=== PATIENT | male | born 1975 | race Caucasian/White ===

== ENCOUNTER → 2019-02-07 06:50 | Outpatient (CLI) | payer OTHER, SELFPAY ==
[2019-02-07 07:45] LABS: Hemoglobin 14.9 g/dL (13.5-17.5); Mean Corpuscular Hemoglobin 30.7 PG (26-34); Mean Corpuscular Volume 90.5 fL (80-100); Platelet Count 222 X10^3/uL (150-400); Red Blood Cell Count 4.86 X10^6/uL (4.5-5.9); Red Cell Distribution Width 12.9 % (11.6-14.8); White Blood Cell Count 5.3 X10^3/uL (4.5-11.0)
[2019-02-07 08:13] LABS: Alanine Aminotransferase 33 IU/L (21-72); Albumin 4.2 g/dL (3.5-5.0); Albumin Globulin Ratio 1.3 (1.0-2.8); Alkaline Phosphatase 63 U/L (38-126); Aspartate Aminotransferase 31 IU/L (17-59); Bilirubin Total 0.4 mg/dL (0.2-1.3); Blood Urea Nitrogen 18 mg/dL (9-20); Calcium 9.2 mg/dL (8.4-10.2); Carbon Dioxide 30 mmol/L (22-32); Chloride 103 mmol/L (98-107); Cholesterol 220 mg/dL (140-199); Estimated Glomerular Filt Rate > 60.0 mL/min (>60); Globulin 3.2 g/dL (1.7-4.1); Glucose 115 mg/dL (70-100); HDL Cholesterol 26 mg/dL (40-60); HEMOLYSIS 20 (0-50); LDL Cholesterol Calculated 126 mg/dL (<100); Potassium 4.4 mmol/L (3.4-5.1); Sodium 140 mmol/L (137-145); Total Protein 7.4 g/dL (6.3-8.2); Triglycerides 341 mg/dL (35-150)
[2019-02-07 08:57] LABS: Thyroid Stimulating Hormone 1.92 uIU/mL (0.47-4.68)
== END ==
PROVIDERS: PCP Nurse Practitioner Family; Visit Provider Nurse Practitioner Family
DX: E03.9 Hypothyroidism, unspecified (principal); Z13.6 Encounter for screening for cardiovascular disorders
CPT/HCPCS: 36415; 80053; 80061; 84443; 85027

== ENCOUNTER → 2019-07-17 06:41 | Outpatient (CLI) | payer OTHER, SELFPAY ==
[2019-07-17 08:12] LABS: Cholesterol 233 mg/dL (140-199); HDL Cholesterol 25 mg/dL (40-60); LDL Cholesterol Calculated 157 mg/dL (<100); Triglycerides 256 mg/dL (35-150)
[2019-07-17 08:19] LABS: Hemoglobin A1C% w Est Avg Glu 5.2 % (4.0-6.0)
[2019-07-17 08:42] LABS: Thyroid Stimulating Hormone 2.16 uIU/mL (0.47-4.68)
== END ==
PROVIDERS: PCP Nurse Practitioner Family; Visit Provider Nurse Practitioner Family
DX: R73.01 Impaired fasting glucose (principal); E78.2 Mixed hyperlipidemia; E03.9 Hypothyroidism, unspecified
CPT/HCPCS: 36415; 80061; 83036; 84443

== ENCOUNTER → 2020-04-27 13:10 | Outpatient (CLI) | payer OTHER, SELFPAY ==
[2020-04-29 07:27] LABS: COVID19 Sendout Not Detected (Not Detect)
== END ==
PROVIDERS: PCP Nurse Practitioner Family; Visit Provider Physician Assistant
DX: R11.0 Nausea (principal); R19.7 Diarrhea, unspecified; R51.9 Headache, unspecified
CPT/HCPCS: 87635

== ENCOUNTER → 2020-09-23 09:13 | Outpatient (CLI) | payer OTHER, SELFPAY ==
[2020-09-23 10:45] LABS: COVID19 -Nasal RAPID Negative (Negative)
== END ==
PROVIDERS: PCP Nurse Practitioner Family; Visit Provider Specialist
DX: Z20.822 Contact with and (suspected) exposure to COVID-19 (principal)
CPT/HCPCS: 87635; C9803

== ENCOUNTER 2020-09-24 07:19 | Day surgery (SDC) | payer OTHER, SELFPAY ==
[2020-09-24] VITALS (10 sets, daily range): BP systolic 107–144; BP diastolic 58–82; PULSE 61–76; RESP 14–16; TEMP 36.2–37.2; O2SAT 94–98; BMI 35.2
--- NOTE | 2020-09-24 | PATH_ITS ---
[facility] Accession Number: [id number] . 01 Material submitted: . PART A: colon - POLYPS AT 25CM PART B: colon - POLYP AT 5CM . 02 Diagnosis: A. Colon Polyps at 25 cm, Biopsies: Fragments of colonic mucosa with focal mucosal hyperplasia. Negative for dysplasia or malignancy. . B. Colon Polyp at 5 cm, Biopsy: Tubular adenoma x1. Hyperplastic polyp x1. MRV 09/29/2020 1306 Local . 02 Electronically signed: . Ramon Rodas MD, PhD, Pathologist NPI- [id number] . 01 Gross description: . A. The specimen is received in formalin, labeled polyp at 25 cm and consists of three tate-pink fragments of soft tissue measuring 1.0 x 1.0 x 0.3 cm in aggregate. The specimen is entirely submitted in cassette A1. B. The specimen is received in formalin, labeled polyp at 5 cm and consists of two tate fragments of soft tissue measuring 0.8 x 0.7 x 0.3 cm in aggregate. The specimen is entirely submitted in cassette B1. ([id number]) /MRV 09/28/2020 1606 Local . 02 Pathologist provided ICD-10: D12.6, K63.5 . 02 CPT . 441994, [id number] Performed at: 01 [facility] [address], [place], [place] [id number] MD Naveen Newton MD Phone: [phone] Performed at: 02 [facility] [address] [place], [place] [id number] MD Lissa Galindo MD Phone: [phone]
[2020-09-24] MEDS: LACTATED RINGERS 1,000 ML 200 ML IV (08:05)
--- NOTE | 2020-09-24 08:34 | PM.HP.1 ---
History of Present Illness History of Present Illness Date Patient Seen: 09/24/20 Time Patient Seen: 08:34 Chief complaint: SCREENING COLONOSCOPY Narrative: Patient is a gentleman whose father had colon cancer in his 60s. He is here for his 1st colonoscopy. 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) Anxiety (1999) Chicken pox (~1979) Chronic low back pain Depression (1999) Essential hypertension (07/2020) Family history of colon cancer in father Measles (~1975) Migraine Mixed hyperlipidemia (01/2019) Surgical History Anesthesia Ear infection (~1993) History of cochlear implant History of ear surgery (~2017) History of knee surgery (~2016) History of myringotomy Family & Social History Family History Father Cancer Diabetes mellitus History of heart disease Hypertension Hyperlipidemia Grandfather Lung cancer History of heart disease Hyperlipidemia Hypertension Grandmother Congestive heart failure Cancer Grandfather Cancer Grandmother Cancer Hypertension Social History: household members family Tobacco & Substance use: Smoking Status Former smoker alcohol intake never Substance Use Type does not use Meds Home Medications and Allergies Home Medications Medication Instructions Recorded Confirmed Type multivitamin 1 tab PO DAILY 01/30/19 09/24/20 History verapamil 80 mg tablet 80 mg PO TID 06/04/20 09/24/20 History escitalopram oxalate 20 mg tablet 20 mg PO DAILY #90 tab 07/09/20 09/24/20 Rx levothyroxine 75 mcg tablet 75 mcg PO DAILY #90 tab 07/09/20 09/24/20 Rx lisinopril 10 mg tablet 10 mg PO DAILY #90 tab 08/17/20 09/24/20 Rx buspirone 5 mg tablet 5 mg PO BID #180 tab 09/23/20 09/24/20 Rx Allergies Allergy/AdvReac Type Severity Reaction Status Date / Time No Known Drug Allergies Allergy Verified 09/24/20 07:43 Review of Systems Review of Systems Narrative: Hearing improved with implant ROS: Yes All systems reviewed with the patient and are negative except as otherwise documented Exam Vital Signs (past 8 hours): - 09/24/20 07:57 Temperature 97.2 F L Pulse Rate 71 Respiratory Rate 16 Blood Pressure 144/82 H Pulse Oximetry 98 Oxygen Delivery Method Room Air Narrative Exam Narrative: Pleasant cooperative patient no apparent distress. Lungs are clear to auscultation. No rales or rhonchi. Heart regular rate and rhythm no murmur gallop. Abdomen is soft nontender without mass. No obvious hernias. Patient is alert and oriented x3. Assessment & Plan Assessment & Plan narrative: The patient for a screening colonoscopy. I have discussed the procedure with them. Risks of bleeding, perforation which would necessitate major operation, failure to find remove all lesions, the potential tattoo were all discussed. All questions were answered. They wished to proceed.
--- NOTE | 2020-09-24 08:37 | PM.PREOP ---
Pre-operative Note COVID-19 COVID-19 status: Negative Result date/Date tested (Pos, Neg/Pending): 09/23/20 Interval Note History & Physical reviewed/Exam performed by Physician: Yes Changes to H&P: No ASA Class (for procedural sedation): II
[2020-09-24] MEDS: MIDAZOLAM 5 MG/5 ML VIAL IV (08:53)
[2020-09-24] MEDS: fentaNYL 250 MCG/5 ML INJ IV (08:53)
--- NOTE | 2020-09-24 09:10 | PM.OP.ENDO ---
Operative Date/Time/Diagnoses Date of procedure: 09/24/20 Time of procedure: 09:10 Pre-op diagnosis: Screening exam. Patient has a father with colon cancer in his 60s. Post-op diagnosis: same (Small Polyps in the distal colon. Sigmoid diverticulosis.) Procedure & Clinicians Study performed: Colonoscopy with cold biopsy Same procedure as scheduled: Yes Indications: Screening in a patient at increased risk Surgeon: Albert Wu Procedure Notes SCOAP/Timeout: Performed Procedure in detail: The patient was placed in the left lateral decubitus position and underwent IV sedation directed by the surgeon consisting of fentanyl and Versed. Digital exam was unremarkable. Prostate is flat.. The scope was inserted and advanced through the rectum into the sigmoid, descending, transverse, and ascending colon. Patient was noted to have sigmoid diverticulosis. There was a small polyp noted at. The cecum was reached identified by the ileocecal valve and the appendiceal opening. The scope was gradually brought out. Additional Polyps were found at near the 25 cm lesion in and also 2 small polyps noted at about 5 cm from the anal verge. These were all removed with biopsy forceps.. The scope ultimately was retroflexed in the rectum. The appearance was normal. The scope was removed and the patient tolerated the procedure well. Very good prep Scope withdrawal time: 8 minutes(10 total) Sedation minutes: 27 Findings: diverticulosis and polyp Specimen(s): other (Polyps) Complications: none Post-procedure Recommendations: Colonscopy in 5 years Follow up: as needed Disposition: PACU
== END 2020-09-24 10:15 | disposition home or self-care (01) ==
PROVIDERS: PCP Nurse Practitioner Family; Referring Provider Nurse Practitioner Family; Visit Provider Specialist
PROC: 0DJD8ZZ Inspection of Lower Intestinal Tract, Via Natural or Artificial Opening Endoscopic (ICD-10-PCS; CPT 45378; principal; 2020-09-24 08:30)
DX: Z12.11 Encounter for screening for malignant neoplasm of colon (principal); Z80.0 Family history of malignant neoplasm of digestive organs; I10 Essential (primary) hypertension; E78.2 Mixed hyperlipidemia; K57.30 Diverticulosis of large intestine without perforation or abscess without bleeding; D12.6 Benign neoplasm of colon, unspecified
CPT/HCPCS: 45380; 99152; J2250; J3010

== ENCOUNTER → 2021-01-04 07:10 | Outpatient (CLI) | payer OTHER, SELFPAY ==
[2021-01-04 08:31] LABS: Alanine Aminotransferase 98 IU/L (<50); Albumin 4.1 g/dL (3.5-5.0); Albumin Globulin Ratio 1.3 (1.0-2.8); Alkaline Phosphatase 78 U/L (38-126); Aspartate Aminotransferase 103 IU/L (17-59); BUN Creatinine Ratio 13.5 (6-22); Bilirubin Total 0.4 mg/dL (0.2-1.3); Blood Urea Nitrogen 12 mg/dL (9-20); Calcium 9.2 mg/dL (8.4-10.2); Carbon Dioxide 28 mmol/L (22-32); Chloride 105 mmol/L (98-107); Cholesterol 141 mg/dL (140-199); Estimated Glomerular Filt Rate > 60.0 mL/min (>60); Globulin 3.1 g/dL (1.7-4.1); Glucose 128 mg/dL (70-100); HDL Cholesterol 31 mg/dL (40-60); HEMOLYSIS 27 (0-50); LDL Cholesterol Calculated 63 mg/dL (<100); Potassium 4.9 mmol/L (3.4-5.1); Sodium 140 mmol/L (137-145); Total Protein 7.2 g/dL (6.3-8.2); Triglycerides 234 mg/dL (35-150)
== END ==
PROVIDERS: PCP Nurse Practitioner Family; Referring Provider Nurse Practitioner Family; Visit Provider Nurse Practitioner Family
DX: Z00.00 Encounter for general adult medical examination without abnormal findings (principal); E03.9 Hypothyroidism, unspecified; Z13.6 Encounter for screening for cardiovascular disorders
CPT/HCPCS: 36415; 80053; 80061; 84443

== ENCOUNTER → 2021-01-20 08:46 | Outpatient (CLI) | payer OTHER, SELFPAY ==
--- NOTE | 2021-01-20 08:46 | DI.US.S_ITS ---
PROCEDURE: US ABDOMEN COMPLETE INDICATIONS: ELEVATED LIVER ENZYMES TECHNIQUE: Real-time scanning was performed of the abdominal and retroperitoneal organs, with image documentation. COMPARISON: None. FINDINGS: Liver: Liver is diffusely increased in echogenicity. No focal hepatic abnormalities identified. Normal hepatic size. Gallbladder: Several gallbladder polyps, largest measuring 6.1 mm; otherwise normal gallbladder. Biliary ducts: Intrahepatic bile ducts are non-dilated. Extrahepatic bile duct caliber measures 6.0 mm. Normal is 6-7 mm or less in diameter, or 10 mm or less post-cholecystectomy. Pancreas: Visualized portions of the pancreas are sonographically normal. Spleen: Spleen is normal in size and homogeneous in echotexture. Kidneys: Kidneys are normal in size and echotexture. Right kidney measures 11.6 cm long; left kidney measures 13.0 cm long. No hydronephrosis or nephrolithiasis. No solid masses. Aorta: Visualized aorta is normal in caliber at less than 3 cm. Iliacs: Proximal common iliac arteries are normal in caliber at less than 2.5 cm. IVC: Intrahepatic inferior vena cava is patent. Miscellaneous: No free abdominal fluid. IMPRESSION: 1. Increased hepatic echogenicity noted possibly related to hepatic steatosis but other sources of hepatocellular disease cannot be excluded. Recommend clinical correlation. 2. Multiple gallbladder polyps, largest measuring 6.1 mm. Yearly follow-up ultrasound recommended. Dictated by: Juan CHAVES Interpreted: Austin Babin MD on 01/20/2021 at 11:17 Transcribed by: QUINTIN on 01/20/2021 at 11:18 Approved by: Austin Babin M.D. on 01/20/2021 at 14:46
== END ==
PROVIDERS: PCP Nurse Practitioner Family; Referring Provider Nurse Practitioner Family; Visit Provider Nurse Practitioner Family
DX: R74.8 Abnormal levels of other serum enzymes (principal); K82.4 Cholesterolosis of gallbladder
CPT/HCPCS: 76700

== ENCOUNTER → 2021-02-08 15:33 | Outpatient (CLI) | payer OTHER, SELFPAY ==
[2021-02-08 16:18] LABS: Hemoglobin A1C% w Est Avg Glu 5.8 % (4.0-6.0)
[2021-02-08 16:53] LABS: Alanine Aminotransferase 37 IU/L (<50); Albumin 4.2 g/dL (3.5-5.0); Albumin Globulin Ratio 1.4 (1.0-2.8); Alkaline Phosphatase 83 U/L (38-126); Aspartate Aminotransferase 30 IU/L (17-59); Bilirubin Total 0.4 mg/dL (0.2-1.3); Bilirubin Unconjugated 0.3 mg/dL (0.0-1.1); HEMOLYSIS < 15 (0-50); Total Protein 7.2 g/dL (6.3-8.2)
[2021-02-09 07:09] LABS: HBsAg Screen Negative (Negative); Hepatitis A Antibody IgM Negative (Negative); Hepatitis B Core Antibody IgM Negative (Negative); Hepatitis C Antibody <0.1 s/co ratio (0.0-0.9)
[2021-02-10 13:12] LABS: Smooth Muscle Antibody 8 Units (0-19)
== END ==
PROVIDERS: PCP Nurse Practitioner Family; Referring Provider Nurse Practitioner Family; Visit Provider Nurse Practitioner Family
DX: R74.8 Abnormal levels of other serum enzymes (principal); R73.01 Impaired fasting glucose
CPT/HCPCS: 36415; 80074; 80076; 83036; 83516

== ENCOUNTER → 2022-06-03 07:56 | Outpatient (CLI) | payer OTHER, SELFPAY ==
[2022-06-03 09:46] LABS: Add Manual Diff / Slide Review NO; Basophils Absolute Auto 100 /uL (0-100); Basophils Percent Auto 0.9 % (0-2); Eosinophils Absolute Auto 200 /uL (0-450); Eosinophils Percent Auto 2.7 % (2-4); Hematocrit 43.6 % (41-53); Hemoglobin 14.8 g/dL (13.5-17.5); Lymphocytes Absolute Auto 1300 /uL (1100-4500); Lymphocytes Percent Auto 22.3 % (25-40); Mean Corpuscular HGB Conc 33.9 % (30-36); Mean Corpuscular Hemoglobin 30.7 PG (26-34); Mean Corpuscular Volume 90.7 fL (80-100); Monocytes Absolute Auto 600 /uL (0-900); Monocytes Percent Auto 10.7 % (3-14); Neutrophils Absolute Auto 3600 /uL (1500-7000); Neutrophils Percent Auto 63.4 % (50-75); Platelet Count 220 X10^3/uL (150-400); Red Blood Cell Count 4.81 X10^6/uL (4.5-5.9); Red Cell Distribution Width 13.6 % (11.6-14.8); White Blood Cell Count 5.6 X10^3/uL (4.5-11.0)
[2022-06-03 09:52] LABS: Hemoglobin A1C% w Est Avg Glu 6.8 % (4.0-6.0)
[2022-06-03 10:24] LABS: Alanine Aminotransferase 40 IU/L (<50); Albumin 4.2 g/dL (3.5-5.0); Albumin Globulin Ratio 1.3 (1.0-2.8); Alkaline Phosphatase 84 U/L (38-126); Aspartate Aminotransferase 27 IU/L (17-59); BUN Creatinine Ratio 17.6 (6-22); Bilirubin Total 0.3 mg/dL (0.2-1.3); Blood Urea Nitrogen 16 mg/dL (9-20); Carbon Dioxide 26 mmol/L (22-32); Chloride 103 mmol/L (98-107); Cholesterol 233 mg/dL (140-199); Estimated Glomerular Filt Rate > 60 mL/min (>60); Globulin 3.2 g/dL (1.7-4.1); Glucose 170 mg/dL (70-100); HDL Cholesterol 29 mg/dL (40-60); HEMOLYSIS < 15 (0-50); Potassium 4.8 mmol/L (3.4-5.1); Sodium 140 mmol/L (137-145); Total Protein 7.4 g/dL (6.3-8.2); Triglycerides 452 mg/dL (35-150)
[2022-06-03 10:41] LABS: Free T3, Triiodothyronine Free 4.42 pg/mL (2.77-5.27); Free T4, Direct Thyroxine 0.76 ng/dL (0.78-2.19)
[2022-06-03 15:12] LABS: Creatinine Urine Random 65.6 mg/dL
[2022-06-03 15:15] LABS: Microalbumi Creatinin Ratio Ur 15.2 ug/mg CR (<30)
== END ==
PROVIDERS: PCP Family Medicine; Referring Provider Family Medicine; Visit Provider Family Medicine
DX: E03.9 Hypothyroidism, unspecified (principal); E78.2 Mixed hyperlipidemia; I10 Essential (primary) hypertension; R73.01 Impaired fasting glucose; Z00.00 Encounter for general adult medical examination without abnormal findings
CPT/HCPCS: 36415; 80053; 80061; 82043; 82570; 83036; 84439; 84443; 84481; 85025

== ENCOUNTER → 2023-02-01 07:02 | Outpatient (CLI) | payer OTHER, SELFPAY ==
[2023-02-01 09:20] LABS: BUN Creatinine Ratio 24.4 (6-22); Blood Urea Nitrogen 21 mg/dL (9-20); Calcium 8.7 mg/dL (8.4-10.2); Carbon Dioxide 26 mmol/L (22-32); Chloride 105 mmol/L (98-107); Cholesterol 145 mg/dL (140-199); Estimated Glomerular Filt Rate > 60 mL/min (>60); Glucose 111 mg/dL (70-100); HDL Cholesterol 33 mg/dL (40-60); HEMOLYSIS < 15 (0-50); LDL Cholesterol Calculated 73 mg/dL (<100); Potassium 4.1 mmol/L (3.4-5.1); Sodium 140 mmol/L (137-145); Triglycerides 197 mg/dL (35-150)
[2023-02-01 09:30] LABS: Creatinine Urine Random 164.5 mg/dL
[2023-02-01 09:35] LABS: Microalbumi Creatinin Ratio Ur 7.9 ug/mg CR (<30); Microalbumin Urine Random 1.3 mg/dL (0-1.6)
[2023-02-02 06:07] LABS: Labcorp Hemoglobin (Hb) A1c 5.8 % (4.8-5.6)
== END ==
PROVIDERS: PCP Family Medicine; Referring Provider Family Medicine; Visit Provider Family Medicine
DX: E03.9 Hypothyroidism, unspecified (principal); E11.65 Type 2 diabetes mellitus with hyperglycemia; E78.2 Mixed hyperlipidemia; I10 Essential (primary) hypertension; E11.9 Type 2 diabetes mellitus without complications
CPT/HCPCS: 36415; 80048; 80061; 82043; 82570; 83036

== ENCOUNTER → 2023-09-22 07:37 | Outpatient (CLI) | payer OTHER, SELFPAY ==
[2023-09-22 09:11] LABS: Hemoglobin A1C% w Est Avg Glu 5.4 % (4.0-6.0)
[2023-09-22 09:18] LABS: Alanine Aminotransferase 37 IU/L (<50); Albumin 4.1 g/dL (3.5-5.0); Albumin Globulin Ratio 1.3 (1.0-2.8); Alkaline Phosphatase 67 U/L (38-126); Aspartate Aminotransferase 28 IU/L (17-59); BUN Creatinine Ratio 15.3 (6-22); Bilirubin Total 0.6 mg/dL (0.2-1.3); Blood Urea Nitrogen 13 mg/dL (9-20); Calcium 9.1 mg/dL (8.4-10.2); Carbon Dioxide 27 mmol/L (22-32); Chloride 106 mmol/L (98-107); Cholesterol 160 mg/dL (140-199); Estimated Glomerular Filt Rate > 60 mL/min (>60); Globulin 3.1 g/dL (1.7-4.1); Glucose 119 mg/dL (70-100); HDL Cholesterol 30 mg/dL (40-60); HEMOLYSIS < 15 (0-50); LDL Cholesterol Calculated 64 mg/dL (<100); Potassium 5.3 mmol/L (3.4-5.1); Sodium 140 mmol/L (137-145); Total Protein 7.2 g/dL (6.3-8.2); Triglycerides 328 mg/dL (35-150)
[2023-09-24 10:22] LABS: Thyroid Stimulating Hormone 0.736 uIU/mL (0.47-4.68)
[2023-09-25 10:14] LABS: PSA Free % 37.5 % (.); PSA, Total 0.4 ng/mL (0.0-4.0)
== END ==
PROVIDERS: PCP Family Medicine; Referring Provider Family Medicine; Visit Provider Family Medicine
DX: E11.9 Type 2 diabetes mellitus without complications (principal); K76.0 Fatty (change of) liver, not elsewhere classified; I10 Essential (primary) hypertension; Z80.42 Family history of malignant neoplasm of prostate
CPT/HCPCS: 36415; 80053; 80061; 83036; 84153; 84154; 84443

== ENCOUNTER → 2025-01-09 06:47 | Outpatient (CLI) | payer OTHER, SELFPAY ==
[2025-01-09 07:38] LABS: Hemoglobin A1C% w Est Avg Glu 5.6 % (4.0-6.0)
[2025-01-09 07:48] LABS: Alanine Aminotransferase 35 IU/L (<50); Albumin 4.2 g/dL (3.5-5.0); Albumin Globulin Ratio 1.6 (1.0-2.8); Alkaline Phosphatase 70 U/L (38-126); Blood Urea Nitrogen 17 mg/dL (9-20); Calcium 9.4 mg/dL (8.4-10.2); Carbon Dioxide 25 mmol/L (22-32); Chloride 105 mmol/L (98-107); Cholesterol 208 mg/dL (140-199); Estimated Glomerular Filt Rate > 60 mL/min (>60); Globulin 2.7 g/dL (1.7-4.1); Glucose 118 mg/dL (70-99); HDL Cholesterol 33 mg/dL (40-60); HEMOLYSIS < 15 (0-50); Sodium 138 mmol/L (137-145); Total Protein 6.9 g/dL (6.3-8.2); Triglycerides 486 mg/dL (35-150)
[2025-01-09 07:49] LABS: Potassium 5.8 mmol/L (3.4-5.1)
[2025-01-09 08:17] LABS: TSH w/ Reflex to FT4 0.81 uIU/mL (0.47-4.68)
[2025-01-10 09:09] LABS: CRP, High Sensitivity 3.60 mg/L (0.00-3.00)
== END ==
PROVIDERS: PCP Family Medicine; Referring Provider Family Medicine; Visit Provider Family Medicine
DX: Z12.5 Encounter for screening for malignant neoplasm of prostate (principal); E11.65 Type 2 diabetes mellitus with hyperglycemia; I10 Essential (primary) hypertension; E03.9 Hypothyroidism, unspecified; E78.2 Mixed hyperlipidemia
CPT/HCPCS: 36415; 80053; 80061; 83036; 84443; 86140; G0103

== ENCOUNTER → 2025-01-21 11:42 | Outpatient (CLI) | payer OTHER, SELFPAY ==
[2025-01-21 13:16] LABS: HEMOLYSIS < 15 (0-50)
[2025-01-21 13:17] LABS: Potassium 5.6 mmol/L (3.4-5.1)
[2025-01-21 15:36] LABS: Microalbumi Creatinin Ratio Ur 23.0 ug/mg CR (<30)
== END ==
PROVIDERS: PCP Family Medicine; Referring Provider Physician Assistant; Visit Provider Physician Assistant
DX: E11.65 Type 2 diabetes mellitus with hyperglycemia (principal); E87.5 Hyperkalemia
CPT/HCPCS: 36415; 82043; 82570; 84132

== ENCOUNTER → 2025-01-31 07:35 | Outpatient (CLI) | payer OTHER, SELFPAY ==
[2025-01-31 08:47] LABS: HEMOLYSIS 24 (0-50); Potassium 4.5 mmol/L (3.4-5.1)
== END ==
PROVIDERS: PCP Family Medicine; Referring Provider Family Medicine; Visit Provider Family Medicine
DX: E87.5 Hyperkalemia (principal)
CPT/HCPCS: 36415; 84132

== ENCOUNTER 2025-05-20 06:13 | Day surgery (SDC) | payer OTHER, SELFPAY ==
[2025-05-01 12:36] VITALS: BMI 34.2
[2025-05-20] VITALS (12 sets, daily range): BP systolic 125–175; BP diastolic 61–87; PULSE 63–88; RESP 14–17; TEMP 36.1–36.5; O2SAT 93–98
[2025-05-20] MEDS: MELOXICAM 7.5 MG TABLET 15 MG PO (06:50)
[2025-05-20] MEDS: GABAPENTIN 300 MG CAPSULE PO (06:51)
[2025-05-20] MEDS: ACETAMINOPHEN 325 MG TABLET 975 MG PO (06:52)
[2025-05-20] MEDS: LACTATED RINGERS 1,000 ML 42 ML IV (06:53)
--- NOTE | 2025-05-20 07:24 | PM.PREOP ---
Pre-operative Note COVID-19 COVID-19 status: Not tested Interval Note History & Physical reviewed/Exam performed by Physician: Yes Changes to H&P: No
--- NOTE | 2025-05-20 08:37 | SUR.OPER ---
Beach chair with Patrice/Shirin shoulder positioner. Lower body on padded OR bed. Head in foam padded head cradle, secured with straps. Non-operative arm secured <90 degrees abduction. Pillow under knees. Safety belt at thigh. Cloth tape over blanket over lower legs.
--- NOTE | 2025-05-20 09:18 | PM.OP.1 ---
Operative Date/Time/Diagnoses Date of procedure: 05/20/25 Time of procedure: 08:20 Pre-op diagnosis: Left shoulder subacromial impingement Post-op diagnosis: same Procedure & Clinicians Procedure: L shoulder arthroscopy with subacromial debridement Same procedure(s) as scheduled: Yes Surgeon: Lissa Riggins Assisted?: Yes First Aid Instructor: Ana Maria Miller Anesthesia Type: General Operative Notes Findings: see below Closure Type: primary Specimen(s): none sent Applied: none Estimated Blood Loss (mL): 10 Procedure in detail: Preoperative diagnosis: L subacromial bursitis Postoperative diagnosis: 1. L shoulder subacromial bursitis Procedure performed: 1. L shoulder arthroscopy with subacromial debridement The patient was met in the preoperative hold area the left upper extremity was signed as the correct extremity. The patient was taken back to the operating room. The patient was placed in the beach chair position. All bony prominences were padded. The patient was positioned in the beach chair ensuring his neck was in neutral alignment. The patient was prepped and draped in the standard sterile fashion. A time-out was performed confirming the correct patient, correct procedure, correct extremity, initials on the operative site and administration of IV antibiotics A standard posterolateral viewing portal was utilized. A diagnostic arthroscopy was performed. The patient had a No slap tear. The rotator cuff tendon was intact.? The humeral head and glenoid cartilage was intact.? The biceps tendon was not inflamed or torn. After finishing the diagnostic arthroscopy, I then placed the arthroscopic instruments in the subacromial space and the subacromial space was debrided. There was very thick bursitis that was debrided. The rotator cuff moved in continuity.? The rotator cuff repair was examined and found to be intact. ??The wounds were copiously irrigated and the arthroscopy portals were closed with 3-0 nylon. A sterile dressing was applied of Xeroform, plain gauze, Medipore tape. At the end of the surgery a total of 30 cc of 0.5% Marcaine was placed into the incision sites. Patient was awoken and taken to the PACU in stable condition. SCOTTIE Miller assisted during the case.? Her role was vital for positioning, instrumentation, exposure and closure. Complications: none Post-operative Condition: stable Disposition: PACU
--- NOTE | 2025-05-20 10:06 | SUR.PHASEI ---
Time out completed at 940 with anesthesia and self at bedside. Block start time [945] . Monitoring initiated and maintained throughout procedure. Oxygen and medications given per anesthesiologist instructions. Patient remained stable throughout procedure, no adverse reactions noted. Block end time [955].
[2025-05-20] MEDS: INSULIN LISPRO 100 UNIT/ML 3ML VIAL SUBCUT (10:13)
== END 2025-05-20 11:39 | disposition home or self-care (01) ==
PROVIDERS: PCP Family Medicine; Referring Provider Family Medicine; Visit Provider Orthopaedic Surgery
PROC: (CPT 29805; principal; 2025-05-20 07:45)
DX: M75.42 Impingement syndrome of left shoulder (principal); M75.52 Bursitis of left shoulder; G89.18 Other acute postprocedural pain
CPT/HCPCS: 29822; 64450; 82962; J1100; J1171; J1885; J2250; J2704; J2795; J3010; J7120